=== PATIENT | female | born 1995 | race African-American/Black ===

== ENCOUNTER 2016-10-31 22:35 | Emergency (ER) | payer OTHER ==
[2016-10-31 22:13] LABS: URINE SOURCE CLEAN CATCH
[2016-10-31 22:17] LABS: URINE APPEARANCE CLEAR; URINE BILIRUBIN NEG (NEG); URINE BLOOD NEG (NEG); URINE COLOR YELLOW; URINE GLUCOSE NEG (NEG); URINE KETONE NEG (NEG); URINE LEUKOCYTE ESTERASE NEG (NEG); URINE NITRATE NEG (NEG); URINE PH 7.5 (5-8); URINE PROTEIN NEG (NEG); URINE SPECIFIC GRAVITY 1.021 (1.003-1.035)
[2016-10-31 22:22] LABS: CULTURE INDICATED? NO
[~2016-10-31 22:35] MED LIST: AMOXICILLIN500 M1 PO; CLONIDINE PO; IBUPROFEN800 MG PO; STRATTERA PO
[2016-11-03 12:09] LABS: CHLAMYDIA TRACH Not Detected (Not Detected); N GONOR Not Detected (Not Detected)
== END 2016-10-31 23:00 | disposition home or self-care (01) ==
LOC: CFTX 22:35
PROVIDERS: Nurse Practitioner
DX: N76.0 Acute vaginitis (principal); F90.9 Attention-deficit hyperactivity disorder, unspecified type; F31.9 Bipolar disorder, unspecified
CPT/HCPCS: 81003; 84703; 87491; 87591; 87808; 87905; 99284

== ENCOUNTER 2017-02-14 12:21 | Emergency (ER) | payer OTHER ==
[~2017-02-14] VITALS: Ht 167.6 cm; Wt 87.1 kg
--- NOTE | ~2017-02-14 | EKG ---
PATIENT: RACHEL GALLEGOS UNIT #: [id number] Ventricular Rate: 68 BPM Atrial Rate: 68 BPM P-R Interval: 152 ms QRS Duration: 82 ms Q-T Interval: 386 ms QTC Calculation(Bezet): 410 ms P [place]: 26 degrees Calculated R [place]: 65 degrees Calculated T [place]: 45 degrees Diagnosis Line: Normal sinus rhythm with sinus arrhythmia Diagnosis Line: Early repolarization Diagnosis Line: Normal ECG Diagnosis Line: No previous ECGs available Diagnosis Line: Confirmed by MATIAS HUSSEIN MD ([id number]) on 02/15/2017 Diagnosis Line: 7:07:37 PM INTERPRETING MD: KEENAN DALEY
--- NOTE | ~2017-02-14 | CR63 ---
[facility] A Service of [facility] RADIOLOGY TEXT RESULTS PATIENT: RACHEL GALLEGOS LOCATION: [facility] : 95 UNIT #: [id number] AGE: [address]: Amrita Jay APRN SEX: F ORDER DR: [id number] [facility] [address] [place], [place] [address] [id number] MR#: [id number] Acc #: [id number] NAME: RACHEL GALLEGOS : 1995 SEX: F STUDY DATE/TIME: 02/14/2017 13:05 UNIT: [facility] ROOM: STUDY DESCRIPTION: CR Chest 2 View Attending Physician: Amrita Jay A.P.R.N. Referring Physician: Josue Alvarado M.D. Ordering Physician: Ed Buck Yates M.D. Primary Care Physician: Liang Shannon M.D. MEDICAL IMAGING REPORT This report is preliminary unless electronic signature is present EXAM Chest, 02/14/2017; [facility]. HISTORY 21-year-old year old female patient with chest pain left side, nipple pain x1 month. Patient is a smoker. COMPARISON None. FINDINGS PA and lateral chest views show normal cardiac size and configuration. Hilar structures and mediastinal contours are preserved. Bilateral lungs are fully expanded and clear. Costophrenic angles are preserved. Note is made of the lack of right breast shadow compared to the visible left breast shadow. This could be positioning. Correlate with clinical findings. IMPRESSION Negative chest. See full report. Dictated by... Erasto Mace M.D. THIS IS AN ELECTRONICALLY VERIFIED REPORT Erasto Mace M.D. at 02/15/2017 8:05 AM CHELITA/vidhya TD: 02/14/2017 19:40 JOB #: [id number] [facility] A Service [facility] RADIOLOGY TEXT RESULTS PATIENT: RACHEL GALLEGOS LOCATION: [facility] : 95 UNIT #: [id number] AGE: [address]: Amrita Jay APRN SEX: F ORDER DR: MEDICAL IMAGING REPORT Page 1 of 1 COPY
[2017-02-14 12:50] LABS: URINE SOURCE CLEAN CATCH
[2017-02-14 13:01] LABS: URINE APPEARANCE CLOUDY; URINE BILIRUBIN NEG (NEG); URINE BLOOD NEG (NEG); URINE COLOR YELLOW; URINE GLUCOSE NEG (NEG); URINE KETONE NEG (NEG); URINE LEUKOCYTE ESTERASE NEG (NEG); URINE NITRATE NEG (NEG); URINE PROTEIN NEG (NEG); URINE SPECIFIC GRAVITY 1.024 (1.003-1.035)
[2017-02-14 13:04] LABS: CULTURE INDICATED? NO
[2017-02-16 00:30] LABS: CHLAMYDIA TRACH Not Detected (Not Detected); N GONOR Not Detected (Not Detected)
== END 2017-02-14 14:05 | disposition home or self-care (01) ==
LOC: CED 12:21 → CFTX 12:21
PROVIDERS: Nurse Practitioner
DX: N89.8 Other specified noninflammatory disorders of vagina (principal); N64.4 Mastodynia; F31.9 Bipolar disorder, unspecified; F90.9 Attention-deficit hyperactivity disorder, unspecified type; F91.3 Oppositional defiant disorder; F17.200 Nicotine dependence, unspecified, uncomplicated
CPT/HCPCS: 71020; 81003; 87491; 87591; 87808; 87905; 93005; 99284